=== PATIENT | female | born 1980 | race Caucasian/White ===

== ENCOUNTER → 2023-05-05 | Outpatient (REF) | payer OTHER ==
[2023-05-05 12:44] LABS: RSV AMPLIFICATION NEGATIVE (NEGATIVE)
== END ==
LOC: M SFHCCLAY 09:51
PROVIDERS: ATTEND Physician Assistant
DX: B34.9 Viral infection, unspecified (principal)

== ENCOUNTER → 2023-06-22 | Outpatient (REF) | payer OTHER ==
[2023-06-22 17:27] LABS: BASO % 0.4 % (0.0-1.0); EOS # 0.2 10^3/uL (0.0-0.5); EOS % 2.3 % (0.0-3.0); HEMATOCRIT 40.3 % (36.0-47.0); HEMOGLOBIN 13.5 g/dl (12.0-15.5); LYMPH # 2.4 10^3/uL (1.5-5.0); LYMPH % 25.3 % (24.0-44.0); MEAN CORPUSCULAR HEMOGLOBIN 29.9 pg (27.0-33.0); MEAN CORPUSCULAR HGB CONC 33.5 g/dl (32.0-36.5); MEAN CORPUSCULAR VOLUME 89.2 fl (80.0-96.0); MONO # 0.9 10^3/uL (0.0-0.8); NEUTROPHILS # 5.9 10^3/uL (1.5-8.5); NEUTROPHILS % 62.6 % (36.0-66.0); PLATELET COUNT, AUTOMATED 407 10^3/uL (150-450); RED BLOOD COUNT 4.52 10^6/uL (4.00-5.40); WHITE BLOOD COUNT 9.4 10^3/uL (4.0-10.0)
[2023-06-22 17:46] LABS: CHOLESTEROL RISK RATIO 2.78 (<5); HDL CHOLESTEROL 74.8 MG/DL (>40); LDL CHOLESTEROL 115.4 MG/DL (<100); NON-HDL-C 133.2 MG/DL; PERCENT SATURATION 26.6 % (13.2-45.0)
[2023-06-22 17:48] LABS: FERRITIN 55.1 NG/ML (7.3-270.7)
[2023-06-22 19:06] LABS: SICKLE CELL SCREEN NEGATIVE (NEGATIVE)
== END ==
LOC: M SFHCCLAY 11:19
PROVIDERS: ATTEND Family Medicine
DX: R41.89 Other symptoms and signs involving cognitive functions and awareness (principal); R41.0 Disorientation, unspecified; Z13.0 Encounter for screening for diseases of the blood and blood-forming organs and certain disorders involving the immune mechanism; E55.9 Vitamin D deficiency, unspecified; E53.8 Deficiency of other specified B group vitamins; E54 Ascorbic acid deficiency; D64.9 Anemia, unspecified; Z13.220 Encounter for screening for lipoid disorders

== ENCOUNTER → 2023-07-06 | Outpatient (CLI) | payer BC, OTHER | LOC: M CARPUL 09:38 | PROVIDERS: ATTEND Family Medicine | DX: J45.40 Moderate persistent asthma, uncomplicated (principal) ==

== ENCOUNTER → 2023-10-16 | Outpatient (CLI) | payer BC | LOC: M RAD 07:45 | PROVIDERS: ATTEND Physician Assistant Medical | DX: R10.9 Unspecified abdominal pain (principal) ==